=== PATIENT | female | born 1990 | race Caucasian/White ===

== ENCOUNTER 2023-06-25 06:53 | Emergency (ER) | payer OTHER, SELFPAY ==
[2023-06-25] VITALS (7 sets, daily range): BP systolic 100–125; BP diastolic 61–85; PULSE 71–96; RESP 16–19; TEMP 36.9; O2SAT 96–100
--- NOTE | ~2023-06-25 | XR_ITS ---
Clinical Indication: Chest pain PA and lateral views of the chest: Comparison: 01/03/2017 Findings: The lungs are clear, without evidence of focal consolidation or pleural effusion. Cardiome diastinal silhouette is within normal limits. Bones and soft tissues are unremarkable. Impression: Normal chest. Reviewed, dictated and finalized at location . [employer]IVER Impression: Normal chest.
--- NOTE | 2023-06-25 06:54 | ECG_ITS ---
Measurements Intervals [place] Rate: 93 P: 65 TX: 123 QRS: 91 QRSD: 86 T: -8 QT: 324 QTc: 404 Interpretive Statements SINUS RHYTHM WITH SINUS ARRHYTHMIA RIGHT AXIS DEVIATION NONSPECIFIC ST & T-WAVE ABNORMALITY- INFERIOR LEADS BASELINE ARTIFACT- I, II, III, AVR, AVF, V5 BORDERLINE ECG NO PREVIOUS ECG AVAILABLE FOR COMPARISON Electronically Signed On 06-25-2023 9:09:42 [employer] by Rico Saenz D.O.
[2023-06-25] MEDS: ALPRAZolam (*CRX) 0.5 MG TABLET PO (08:20)
[2023-06-25] MEDS: SODIUM CHLORIDE 0.9% IV 1,000 ML 999 ML IV CONT (08:31)
[2023-06-25 08:39] LABS: Basophils Percent Auto 0.5 % (0.2-1.2); Eosinophils Absolute Auto 0.1 K/mm3 (0-0.3); Eosinophils Percent Auto 1.6 % (0-4.4); Hematocrit 39.7 % (37.0-47.0); Hemoglobin 12.6 g/dL (12.0-15.0); Immature Granulocyte Absolute 0.01 K/mm3 (0.00-0.031); Immature Granulocyte Percent A 0.2 % (0-0.5); Lymphocytes Absolute Auto 1.63 K/mm3 (0.9-3.2); Lymphocytes Percent Auto 38.4 % (18.3-44.2); Mean Corpuscular HGB Conc 31.7 g/dl (32-36); Mean Corpuscular Hemoglobin 29.6 pg (26-34); Mean Corpuscular Volume 93.2 fl (80-100); Mean Platelet Volume 8.7 fl (7.4-10.4); Monocytes Absolute Auto 0.3 K/mm3 (0.1-0.6); Monocytes Percent Auto 7.8 % (2.6-8.5); Neutrophils Absolute Auto 2.2 K/mm3 (1.3-6.7); Neutrophils Percent Auto 51.5 % (45.5-73.1); Platelet Count Result 332 k/mm3 (150-375); Red Blood Count 4.26 M/mm3 (4.2-5.4); Red Cell Distribution Width 12.3 % (11.5-14.5); White Blood Count 4.3 K/mm3 (4.5-10.0)
[2023-06-25 08:50] LABS: Alanine Aminotransferase 21 U/L (6-35); Albumin Level 4.7 g/dL (3.5-5.1); Alkaline Phosphatase 53 U/L (38-126); Anion Gap 10 mmol/L (8-16); Aspartate Amino Transferase 24 U/L (14-36); Bilirubin,Total 0.8 mg/dL (0.2-1.3); Blood Urea Nitrogen 10 mg/dL (7-17); Carbon Dioxide 26 mmol/L (22-30); Chloride 103 mmol/L (98-107); Estimated CRCL calculation 96 ml/min; Estimated Glomerular Filt Rate > 60; Glucose 99 mg/dL (65-110); Potassium 3.9 mmol/L (3.4-5.0); Sodium 139 mmol/L (137-145)
[2023-06-25 09:01] LABS: Troponin I < 0.012 ng/mL (0.000-0.034)
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
[2023-06-25] MEDS: MECLIZINE HCL 25 MG TABLET PO (10:32)
--- NOTE | 2023-06-25 12:21 | PC.NURSE ---
This RN called pts spouse Justino at [phone] per pt request and gave update on pt results and POC. At this time pt is resting on stretcher, updated and NAD noted. VSS.
[2023-06-25 12:34] LABS: Troponin I < 0.012 ng/mL (0.000-0.034)
== END 2023-06-25 12:46 | disposition home or self-care (01) ==
PROVIDERS: Emergency Provider Emergency Medicine
DX: R42 Dizziness and giddiness (principal); F41.9 Anxiety disorder, unspecified
CPT/HCPCS: 36415; 71046; 80053; 84484; 85025; 93005; 96360; 99284; A9270; J7030

== ENCOUNTER 2024-06-02 09:18 | Emergency (ER) | payer OTHER, SELFPAY ==
[2024-06-02] VITALS (8 sets, daily range): BP systolic 99–122; BP diastolic 63–82; PULSE 65–94; RESP 12–20; TEMP 36.5; O2SAT 98–100
--- NOTE | ~2024-06-02 | US_ITS ---
EXAMINATION: US OB <=14 wk fetus w TV DATE: 06/02/2024 13:35 CDT INDICATION: Pelvic cramping COMPARISON: None TECHNIQUE: Real-time transabdominal obstetric ultrasound. Patient unable to tolerate transvaginal jean paul jalloh. FINDINGS: 2 para 1 Estimated date of delivery by last menstrual period is 01/25/2025 The uterus measures 10.6 x 5.7 x 6.7 cm. A gestational sac is identified within the uterus. A yolk sac is present. Mean gestational sac size measures 1.95 cm, corresponding to an approximate gestational age of 6 week s and 6 days. cardiac activity is identified at a rate of 124 bpm. Despite prolonged interrogation, neither ovary was visualized. IMPRESSION: Single intrauterine gestation with an approximate gestational age of 6 weeks and 6 days, with c ardiac activity identified. Reviewed, dictated and finalized at location A. IMPRESSION: Single intrauterine gestation with an approximate gestational age of 6 weeks an d 6 days, with cardiac activity identified.
--- NOTE | 2024-06-02 09:57 | PC.NURSE ---
Pt taken to US from toileting
[2024-06-02 10:03] LABS: BEDSIDEPREGUCG Positive (Negative)
[2024-06-02] MEDS: PROMETHAZINE HCL 25 MG/ML AMPUL 12.5 MG IV PUSH (10:20)
[2024-06-02] MEDS: SODIUM CHLORIDE 0.9% IV 1,000 ML 999 ML IV CONT (10:20)
[2024-06-02 10:35] LABS: Basophils Percent Auto 0.2 % (0.2-1.2); Eosinophils Percent Auto 0.5 % (0-4.4); Hematocrit 36.5 % (37.0-47.0); Hemoglobin 12.5 g/dL (12.0-15.0); Immature Granulocyte Absolute 0.01 K/mm3 (0.00-0.031); Immature Granulocyte Percent A 0.2 % (0-0.5); Lymphocytes Absolute Auto 1.51 K/mm3 (0.9-3.2); Lymphocytes Percent Auto 23.9 % (18.3-44.2); Mean Corpuscular HGB Conc 34.2 g/dl (32-36); Mean Corpuscular Hemoglobin 30.8 pg (26-34); Mean Corpuscular Volume 89.9 fl (80-100); Mean Platelet Volume 8.9 fl (7.4-10.4); Monocytes Absolute Auto 0.5 K/mm3 (0.1-0.6); Monocytes Percent Auto 7.8 % (2.6-8.5); Neutrophils Absolute Auto 4.3 K/mm3 (1.3-6.7); Neutrophils Percent Auto 67.4 % (45.5-73.1); Platelet Count Result 343 k/mm3 (150-375); Red Blood Count 4.06 M/mm3 (4.2-5.4); Red Cell Distribution Width 12.2 % (11.5-14.5); White Blood Count 6.3 K/mm3 (4.5-10.0)
[2024-06-02 10:39] LABS: Add Urine Microscopic? YES; Appearance Urine Cloudy (Clear); Bacteria Urine 4+ /hpf; Bilirubin Urine Negative (Negative); Blood Urine Negative (Negative); Color Urine Yellow (Yellow); Glucose Urine UA Negative (Negative); Ketones Urine Trace mg/dL (Negative); Leukocyte Esterase Ur 1+ LEU/UL (Negative); Nitrate Urine Negative (Negative); Non Pathogenic Casts 0-2; Protein Urine Negative (Negative); RBC Urine 0-2 /hpf (0-2); Specific Grav Ur 1.015 (1.001-1.035); Squamous Epithelial Cell Urine Few /hpf (Few)
[2024-06-02 10:44] LABS: Alanine Aminotransferase 25 U/L (6-35); Albumin Level 4.4 g/dL (3.5-5.1); Alkaline Phosphatase 55 U/L (38-126); Anion Gap 10 mmol/L (4-12); Aspartate Amino Transferase 26 U/L (14-36); Bilirubin,Total 0.6 mg/dL (0.2-1.3); Blood Urea Nitrogen 7 mg/dL (7-17); Calcium 9.5 mg/dL (8.4-10.2); Carbon Dioxide 23 mmol/L (22-30); Chloride 101 mmol/L (98-107); Estimated CRCL calculation 126 ml/min; Estimated Glomerular Filt Rate > 60; Glucose 86 mg/dL (65-110); Potassium 3.8 mmol/L (3.4-5.0); Sodium 134 mmol/L (137-145)
--- NOTE | 2024-06-02 12:35 | ED.GENADULT ---
HPI - General Adult General Chief complaint: Recheck/Abnormal Lab/Rx Stated complaint: dehydration, 7 weeks Time Seen by Provider: 06/02/24 09:28 History of Present Illness HPI narrative: Patient is a 33-year-old female who is a presents ER with nausea. No vaginal bleeding or vaginal discharge. She has not had an ultrasound for dating. Her OB is in [place]. Decreased p.o. intake without vomiting but continues to have nausea. Dizzy with standing. Related Data Allergies Allergy/AdvReac Type Severity Reaction Status Date / Time codeine Allergy Mild RASH Verified 06/25/23 08:19 iodine Allergy Mild rash Verified 06/25/23 08:19 DARK CHOCOLATE Allergy Mild RASH Uncoded 06/25/23 08:19 Review of Systems Review of Systems: All systems reviewed & are unremarkable except as noted in HPI and below Constitutional: Constitutional: Reports no additional constitutional complaints ENT: Reports system reviewed and no additional complaints, except as documented Cardiovascular: Cardiovascular: Reports no additional cardiovascular complaints Respiratory: Respiratory: Reports no additional respiratory complaints Gastrointestinal: Gastrointestinal: Reports no additional gastrointestinal complaints [facility] Past Medical History Medical History (Updated 06/02/24 @ 14:33 by Gilberto Hayward MD) Anxiety Surgical History Surgical History (Updated 06/25/23 @ 09:05 by Gilberto Hayward MD) No pertinent past surgical history Social History Social History Substance use type: does not use Exam Narrative: GENERAL: Well-appearing, well-nourished, and in no acute distress. HEAD: Normocephalic, atraumatic. ENT: Mucous membranes moist. CHEST: Clear to auscultation. No respiratory distress. HEART: Regular rate and rhythm. Normal peripheral pulses. ABDOMEN: Soft, nontender, nondistended. EXTREMITIES: Normal range of motion. No edema. SKIN: Warm, dry, no rash. NEURO: Alert and oriented x3. PSYCH: Normal mood and affect. Course Course Emergency Course: Patient resting comfortably. Hydrated. In antiemetics. IUP present. Patient with UTI which will be treated with oral antibiotics. Vital Signs Vital signs: Vital Signs Pulse Rate 81 06/02/24 09:25 Respiratory Rate 20 06/02/24 09:25 Blood Pressure 110/81 06/02/24 09:25 Pulse Oximetry 100 06/02/24 09:25 Temperature 97.7 F 06/02/24 09:40 Pulse Rate 69 06/02/24 11:01 Respiratory Rate 18 06/02/24 11:01 Blood Pressure 102/72 06/02/24 11:01 Pulse Oximetry 100 06/02/24 11:01 Oxygen Delivery Room Air 06/02/24 09:40 Medical Decision Making Vital Signs Vital Signs: Vital Signs Pulse Rate 81 06/02/24 09:25 Respiratory Rate 20 06/02/24 09:25 Blood Pressure 110/81 06/02/24 09:25 Pulse Oximetry 100 06/02/24 09:25 Temperature 97.7 F 06/02/24 09:40 Pulse Rate 69 06/02/24 11:01 Respiratory Rate 18 06/02/24 11:01 Blood Pressure 102/72 06/02/24 11:01 Pulse Oximetry 100 06/02/24 11:01 Oxygen Delivery Room Air 06/02/24 09:40 Lab Data 06/02/24 10:26 06/02/24 10:26 Labs: Lab Results 06/02/24 06/02/24 06/02/24 Range/Units 10:01 10:25 10:26 WBC 6.3 (4.5-10.0) K/mm3 RBC 4.06 L (4.2-5.4) M/mm3 Hgb 12.5 (12.0-15.0) g/dL Hct 36.5 L (37.0-47.0) % MCV 89.9 (80-100) fl MCH 30.8 (26-34) pg MCHC 34.2 (32-36) g/dl RDW 12.2 (11.5-14.5) % Plt Count 343 (150-375) k/mm3 MPV 8.9 (7.4-10.4) fl Immature Gran % (Auto) 0.2 (0-0.5) % Neut % (Auto) 67.4 (45.5-73.1) % Lymph % (Auto) 23.9 (18.3-44.2) % [place] % (Auto) 7.8 (2.6-8.5) % Eos % (Auto) 0.5 (0-4.4) % Baso % (Auto) 0.2 (0.2-1.2) % Lymph # (Auto) 1.51 (0.9-3.2) K/mm3 [place] # (Auto) 0.5 (0.1-0.6) K/mm3 Eos # (Auto) 0.0 (0-0.3) K/mm3 Baso # (Auto) 0.0 (0.0-0.1) K/mm3 Abs Immat Gran (auto) 0.01 (0.00-0.03
--- NOTE | 2024-06-02 14:21 | PC.NURSE ---
Pt c/o hunger. made aware. States pt can eat
--- NOTE | 2024-06-02 14:57 | PC.NURSE ---
Pt states she does not want to take the meclizine. made aware.
== END 2024-06-02 15:40 | disposition home or self-care (01) ==
PROVIDERS: Emergency Provider Emergency Medicine; PCP Nurse Practitioner
DX: N39.0 Urinary tract infection, site not specified (principal); R42 Dizziness and giddiness
CPT/HCPCS: 36415; 76801; 76817; 80053; 81001; 81025; 84702; 85025; 87086; 87186; 96361; 96374; 99284; J2550; J7030

== ENCOUNTER 2024-07-09 07:27 | Emergency (ER) | payer OTHER, SELFPAY ==
[2024-07-09] VITALS (16 sets, daily range): BP systolic 90–115; BP diastolic 54–83; PULSE 86–112; RESP 13–36; TEMP 36.9; O2SAT 100
--- NOTE | 2024-07-09 07:29 | ECG_ITS ---
Test Date: 2024-07-09 07:36:09 Measurements Intervals [place] Rate: 93 P: 46 SC: 130 QRS: 78 QRSD: 74 T: 30 QT: 338 QTc: 422 Interpretive Statements SINUS RHYTHM MINIMAL ST DEPRESSION IN ANTEROLAT/INF LEADS BASELINE ARTIFACT- I, II, AVR, AVL, AVF, V1, V3 BORDERLINE ECG No previous ECG available for comparison Electronically Signed On 07-09-2024 08:25:06 [employer]IST[employer] by Rcio Saenz D.O.
[2024-07-09] MEDS: SODIUM CHLORIDE 0.9% IV 1,000 ML 999 ML IV CONT ×2 (08:21→09:55)
[2024-07-09 08:30] LABS: Basophils Percent Auto 0.3 % (0.2-1.2); Eosinophils Absolute Auto 0.1 K/mm3 (0-0.3); Eosinophils Percent Auto 0.7 % (0-4.4); Hematocrit 35.8 % (37.0-47.0); Hemoglobin 12.2 g/dL (12.0-15.0); Immature Granulocyte Absolute 0.03 K/mm3 (0.00-0.031); Immature Granulocyte Percent A 0.3 % (0-0.5); Lymphocytes Percent Auto 14.9 % (18.3-44.2); Mean Corpuscular HGB Conc 34.1 g/dl (32-36); Mean Corpuscular Hemoglobin 30.9 pg (26-34); Mean Corpuscular Volume 90.6 fl (80-100); Mean Platelet Volume 8.9 fl (7.4-10.4); Monocytes Absolute Auto 0.5 K/mm3 (0.1-0.6); Monocytes Percent Auto 5.4 % (2.6-8.5); Neutrophils Absolute Auto 6.8 K/mm3 (1.3-6.7); Neutrophils Percent Auto 78.4 % (45.5-73.1); Platelet Count Result 429 k/mm3 (150-375); Red Blood Count 3.95 M/mm3 (4.2-5.4); Red Cell Distribution Width 13.2 % (11.5-14.5); White Blood Count 8.7 K/mm3 (4.5-10.0)
[2024-07-09 08:34] LABS: Add Urine Microscopic? YES; Appearance Urine Turbid (Clear); Bacteria Urine None Seen /hpf; Bilirubin Urine Negative (Negative); Blood Urine Negative (Negative); Color Urine Yellow (Yellow); Glucose Urine UA Negative (Negative); Ketones Urine Negative (Negative); Leukocyte Esterase Ur Negative LEU/UL (Negative); Nitrate Urine Negative (Negative); Non Pathogenic Casts 0-2; Protein Urine Negative (Negative); RBC Urine 0-2 /hpf (0-2); Specific Grav Ur 1.013 (1.001-1.035); Squamous Epithelial Cell Urine Moderate /hpf (Few); WBC Urine 0-5 /hpf (0-3)
[2024-07-09 08:59] LABS: Alanine Aminotransferase 20 U/L (6-35); Albumin Level 4.2 g/dL (3.5-5.1); Alkaline Phosphatase 56 U/L (38-126); Anion Gap 10 mmol/L (4-12); Aspartate Amino Transferase 26 U/L (14-36); Bilirubin,Total 0.6 mg/dL (0.2-1.3); Blood Urea Nitrogen 5 mg/dL (7-17); Calcium 9.2 mg/dL (8.4-10.2); Carbon Dioxide 24 mmol/L (22-30); Chloride 102 mmol/L (98-107); Estimated CRCL calculation 121 ml/min; Estimated Glomerular Filt Rate > 60; Glucose 89 mg/dL (65-110); Potassium 3.7 mmol/L (3.4-5.0); Sodium 136 mmol/L (137-145)
[2024-07-09 09:04] LABS: Influenza A QL RT-PCR Negative (Negative); Influenza B QL RT-PCR Negative (Negative); RSV RNA, RT-PCR Negative (Negative); SARS-CoV-2 RNA PCR Negative (Negative)
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
== END 2024-07-09 10:49 | disposition home or self-care (01) ==
PROVIDERS: Emergency Provider Emergency Medicine; PCP Nurse Practitioner
DX: O26.891 Other specified pregnancy related conditions, first trimester (principal); E86.0 Dehydration; R00.2 Palpitations; F43.0 Acute stress reaction; Z3A.12 12 weeks gestation of pregnancy; Z20.822 Contact with and (suspected) exposure to COVID-19
CPT/HCPCS: 36415; 80053; 81001; 85025; 87637; 93005; 96360; 96361; 99283; J7030